=== PATIENT | female | born 1990 | race Caucasian/White ===

== ENCOUNTER 2021-02-04 16:53 | Emergency (ER) | payer MEDICAID, SELFPAY ==
[~2021-02-04] VITALS: Ht 167.6 cm; Wt 59.0 kg
[2021-02-04 16:53] VITALS: BP_SYST 120
--- NOTE | 2021-02-04 17:00 | NUR ---
Patient to ER bed TENT1 to gown for evaluation. Side rails up.
--- NOTE | 2021-02-04 17:10 | NUR ---
PT REPORTS COVID (+) TEST.PT HAS ACUTE RESP DISTRESS NOTED,VSS.
--- NOTE | 2021-02-04 21:00 | NUR ---
Called pt x 3, no answer. Patient left without being seen. No futher treatment provided. ER MD aware
== END 2021-02-04 21:00 | disposition left against medical advice (07) ==
LOC: SED 16:53
DX: U07.1 COVID-19 (principal); Z53.21 Procedure and treatment not carried out due to patient leaving prior to being seen by health care provider

== ENCOUNTER 2022-01-06 16:07 | Emergency (ER) | payer MEDICAID ==
[~2022-01-06] VITALS: Ht 162.6 cm; Wt 65.8 kg
[2022-01-06 16:10] VITALS: BP_SYST 128
--- NOTE | 2022-01-06 16:10 | NUR ---
Patient triaged and placed in waiting room. VSS and patient appears in no acute distress at this time. Accompanied by FRIEND, awaiting available bed, and MD notified of need for MSE.
--- NOTE | 2022-01-06 17:10 | NUR ---
Pt bib bls from urgent care. CC febrile 100.3 body aches 07/29. NVD. Pt is aaox3, fatique cramping and incontinet . Pt has flu like symptoms for past 5 days. Denies SOB. not covid vaccinated, SX Hx appendectomy, history of asthma.
[2022-01-06] MEDS: NACL 0.9% 1,000 ML IV ONE (17:15)
[2022-01-06] MEDS ORDERED: ACETAMINOPHEN 500 MG TABLET PO ONE (17:15)
[2022-01-06] MEDS ORDERED: KETOROLAC TROMETHAMINE 15 MG VIAL IVP ONE (17:15)
[2022-01-06] MEDS ORDERED: ONDANSETRON HCL 4 MG/2 ML VIAL IVP ONE (17:15)
[2022-01-06 17:52] LABS: BASOPHILS # (AUTO) 0.1 K/uL (0.0-0.2); BASOPHILS % (AUTO) 0.4 % (0.0-2.0); EOSINOPHILS % (AUTO) 0.1 % (0.0-4.0); HEMATOCRIT 44.5 % (36-48); HEMOGLOBIN 15.5 g/dL (12.0-16.0); LYMPHOCYTES # (AUTO) 0.4 K/uL (1.0-5.5); LYMPHOCYTES % (AUTO) 3.1 % (20.5-51.5); MEAN CORPUSCULAR HEMOGLOBIN 31 pg (27-31); MEAN CORPUSCULAR HGB CONC 35 % (32-36); MEAN CORPUSCULAR VOLUME 88 fL (79.0-98.0); MONOCYTES # (AUTO) 0.7 K/uL (0.0-1.0); NEUTROPHILS # (AUTO) 11.1 K/uL (1.8-7.7); NEUTROPHILS % (AUTO) 90.4 % (40.0-70.0); PLATELET COUNT (AUTO) 305 K/uL (130-430); RED BLOOD CELL COUNT(AUTO) 5.04 MIL/uL (4.2-6.2); RED CELL DISTRIBUTION WIDTH 12.5 % (9.0-15.0); WHITE BLOOD COUNT (AUTO) 12.3 K/uL (4.8-10.8)
[2022-01-06 17:59] LABS: CREATININE 1.08 mg/dL (0.55-1.30)
[2022-01-06 18:05] LABS: ALBUMIN 4.8 g/dL (3.4-4.8); TOTAL BILIRUBIN 0.3 mg/dL (0.0-1.0)
--- NOTE | 2022-01-06 19:17 | NUR ---
Pt BBA complaining of flu like syptoms starting 5 days ago with nasea and vomiting and diahrrea
--- NOTE | 2022-01-06 19:19 | NUR ---
Pt brought in with fever and having waiting at an urgent care and another ER before coming in. Pt given pants as pt had dirtied hers and desired to throw hers away.
--- NOTE | 2022-01-06 19:20 | NUR ---
Pt boyfriend at bedside having sypmtoms of flu as well and okay to be in room with pt per ER Dr. Barbosa is calm and feeling better
--- NOTE | 2022-01-06 20:30 | NUR ---
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
[2022-01-06 21:37] LABS: BILIRUBIN,URINE 2+ (NEGATIVE); BLOOD, URINE NEGATIVE (NEGATIVE); CLARITY/URINE CLEAR (CLEAR); GLUCOSE,URINE NEGATIVE (NEGATIVE); KETONES,URINE 1+ (NEGATIVE); LEUKOCYTE ESTERASE ,URINE NEGATIVE (NEGATIVE); NITRITE, URINE NEGATIVE (NEGATIVE); PH,URINE 5.5 (5.0-8.0); PROTEIN URINE 1+ (NEGATIVE); UROBILINOGEN,URINE 0.2 (0.2-1.0)
[2022-01-06 21:41] LABS: COLOR,URINE AMBER (YELLOW)
[2022-01-06 21:42] LABS: BACTERIA,URINE FEW /HPF (None Seen); RBC,URINE 0-3 /HPF (0-3); WBC,URINE 0-3 /HPF (0-3)
[2022-01-06 21:43] LABS: MUCUS,URINE 3+ /LPF (None Seen)
[2022-01-06] MEDS ORDERED: ONDA-8 TL (21:56)
--- NOTE | 2022-01-06 22:10 | NUR ---
Patient given written and verbal discharge instructions and verbalizes understanding. ER MD discussed with patient the results and treatment provided. Patient in stable condition. ID arm band removed. IV catheter removed intact and dressing applied, no active bleeding. Rx of ZOFRAN given. Patient educated on pain management and to follow up with PMD. Opportunity for questions provided and answered. Medication side effect fact sheet provided.
[2022-01-06 22:11] VITALS: BP_SYST 95
== END 2022-01-06 22:11 | disposition home or self-care (01) ==
LOC: SED 16:07
DX: J11.1 Influenza due to unidentified influenza virus with other respiratory manifestations (principal); R11.10 Vomiting, unspecified; R19.7 Diarrhea, unspecified; R05.9 Cough, unspecified; R10.31 Right lower quadrant pain; R50.9 Fever, unspecified; J45.909 Unspecified asthma, uncomplicated; Z79.899 Other long term (current) drug therapy; Z20.822 Contact with and (suspected) exposure to COVID-19
CPT/HCPCS: 99284; 74176; 96374; 76830; 96361; 96375; 87426; 80053; 81000; 83690; 85025; 36415; 76376; 81025; 87804 ×2; J1885; J2405; J7030

== ENCOUNTER 2022-09-24 00:23 | Emergency (ER) | payer MEDICAID ==
[~2022-09-24] VITALS: Ht 170.2 cm; Wt 58.5 kg
[~2022-09-24 00:23] MED LIST: ONDA-8 TL
[2022-09-24 00:30] VITALS: BP_SYST 117; PULSE 88; RESP 20; TEMP 98.9; O2SAT 96
--- NOTE | 2022-09-24 00:42 | NUR ---
Patient to ER bed 03 to gown for evaluation. Side rails up. Report given to CALEB MEIER.
--- NOTE | 2022-09-24 01:05 | NUR ---
PT BIB BY SELF C/O OF VAGINAL BLEEDING FOR 14 DAYS. PT STATED HER LAST MENSTRAL CYCLE WAS THE FIRST WEEK OF AUGUST. PT STATES SHE HAS BEEN HAVING BLEEDING AND SATURATING A PAD EVERY HOUR. PT STATES SHE HAS BEEN EXPERIENCING A HEADACHE, NAUSEA, AND DIZZINESS OF TODAY. PT MEDICAL HX OF LABIA PLASTY. PT DENIES ANY TRAUMA TO HER VAGINAL AREA. PT EYES OPEN SPONTANEOUSLY. PT IS ALERT AND ORIENTED TO PERSON, PLACE, TIME, AND SITUATION. PT OBEYS COMMANDS. PT DENIES AUDITORY OR VISUAL ISSUES. PT DENIES SOB OR CHEST PAIN. PT DENIES VOMTITNG. PT DENIES ABOMINAL PAIN. PT DENIES URINARY OR BOWEL ISSUES. PT SKIN IS WARM TO TOUCH. PT DOES HAVE LOWER ABOMINAL CRAMPING. PT IS NOT ACTIVELY BLEEDING AT THIS TIME. PT IS IN ROOM 3 ON THE MONITOR PLAN OF CARE CONTINUES.
--- NOTE | 2022-09-24 01:10 | NUR ---
ER at bedside examining patient.
[2022-09-24 01:38] LABS: BASOPHILS # (AUTO) 0.1 K/uL (0.0-0.2); BASOPHILS % (AUTO) 0.7 % (0.0-2.0); EOSINOPHILS # (AUTO) 0.2 K/uL (0.0-0.4); EOSINOPHILS % (AUTO) 3.2 % (0.0-4.0); HEMATOCRIT 37.8 % (36-48); HEMOGLOBIN 13.1 g/dL (12.0-16.0); LYMPHOCYTES # (AUTO) 2.1 K/uL (1.0-5.5); LYMPHOCYTES % (AUTO) 27.5 % (20.5-51.5); MEAN CORPUSCULAR HEMOGLOBIN 31 pg (27-31); MEAN CORPUSCULAR HGB CONC 35 % (32-36); MEAN CORPUSCULAR VOLUME 90 fL (79.0-98.0); MONOCYTES # (AUTO) 0.7 K/uL (0.0-1.0); MONOCYTES % (AUTO) 8.7 % (1.7-9.3); NEUTROPHILS # (AUTO) 4.7 K/uL (1.8-7.7); NEUTROPHILS % (AUTO) 59.9 % (40.0-70.0); PLATELET COUNT (AUTO) 263 K/uL (130-430); RED BLOOD CELL COUNT(AUTO) 4.21 MIL/uL (4.2-6.2); RED CELL DISTRIBUTION WIDTH 13.4 % (9.0-15.0); WHITE BLOOD COUNT (AUTO) 7.8 K/uL (4.8-10.8)
[2022-09-24 02:07] LABS: ALBUMIN 4.1 g/dL (3.4-4.8); CALCIUM 9.1 mg/dL (8.4-11.0); CREATININE 0.83 mg/dL (0.55-1.30); TOTAL BILIRUBIN 0.4 mg/dL (0.0-1.0)
--- NOTE | 2022-09-24 02:30 | NUR ---
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 PLAN OF CARE CONTINUES.
[2022-09-24 03:55] VITALS: BP_SYST 127; PULSE 67; RESP 20; TEMP 97.7; O2SAT 98
[2022-09-24 03:56] LABS: BILIRUBIN,URINE NEGATIVE (NEGATIVE); BLOOD, URINE 2+ (NEGATIVE); CLARITY/URINE CLEAR (CLEAR); COLOR,URINE YELLOW (YELLOW); GLUCOSE,URINE NEGATIVE (NEGATIVE); KETONES,URINE NEGATIVE (NEGATIVE); LEUKOCYTE ESTERASE ,URINE NEGATIVE (NEGATIVE); NITRITE, URINE NEGATIVE (NEGATIVE); PROTEIN URINE NEGATIVE (NEGATIVE); UROBILINOGEN,URINE 0.2 (0.2-1.0)
--- NOTE | 2022-09-24 03:57 | NUR ---
Patient given written and verbal discharge instructions and verbalizes understanding. ER MD discussed with patient the results and treatment provided. Patient in stable condition. ID arm band removed. Patient educated on pain management and to follow up with PMD. Pain Scale 4 OUT OF 10 . Opportunity for questions provided and answered. Medication side effect fact sheet provided.
[2022-09-24 04:11] LABS: BACTERIA,URINE RARE /HPF (None Seen)
== END 2022-09-24 03:57 | disposition home or self-care (01) ==
LOC: SED 00:23
DX: N93.9 Abnormal uterine and vaginal bleeding, unspecified (principal); J45.909 Unspecified asthma, uncomplicated; Z79.899 Other long term (current) drug therapy
CPT/HCPCS: 36415; 76856-TC; 80053; 81000; 81025; 85025; 86886; 86900; 86901; 99284

== ENCOUNTER 2022-11-29 14:36 | Emergency (ER) | payer MEDICAID ==
[~2022-11-29] VITALS: Ht 170.2 cm; Wt 58.5 kg
[2022-11-29 14:36] VITALS: BP_SYST 116; PULSE 79; RESP 18; TEMP 98.1; O2SAT 99
[2022-11-29] MEDS ORDERED: NACL 0.9% 1,000 ML IV ONE (15:00)
[2022-11-29] MEDS ORDERED: ONDANSETRON HCL 4 MG/2 ML VIAL IVP ONE (15:00)
[2022-11-29] MEDS ORDERED: KETOROLAC TROMETHAMINE 30 MG VIAL IVP ONE (15:00)
[2022-11-29] MEDS ORDERED: LIDOCAINE JELLY 5 ML TUBE MM ONE (15:15)
[2022-11-29] MEDS ORDERED: LIDOCAINE 2% JELLY UROJECT 10 ML MM ONE (15:51)
[2022-11-29 15:59] LABS: ANION GAP 8 (5-15); CALCIUM 9.4 mg/dL (8.4-11.0); CARBON DIOXIDE 28 mmol/L (23-29); CHLORIDE 104 mmol/L (98-107); CREATININE 0.87 mg/dL (0.55-1.30); GFR AFRICAN AMERICAN 98 mL/min (>90); GLUCOSE 95 mg/dL (74-106); POTASSIUM 3.6 mmol/L (3.5-5.1); SODIUM SERUM 140 mmol/L (136-145); UREA NITROGEN, BLOOD 11 mg/dL (8-21)
[2022-11-29 16:01] LABS: GFR NON AFRICAN-AMERICAN 81 mL/min (>90)
[2022-11-29 16:04] LABS: ALANINE AMINOTRANSFERASE 20 U/L (12-78); ALBUMIN 3.9 g/dL (3.4-4.8); ASPARTATE AMINOTRANSFERASE 14 U/L (10-37); TOTAL BILIRUBIN 0.4 mg/dL (0.0-1.0); TOTAL PROTEIN, SERUM 7.1 g/dL (6.4-8.3)
[2022-11-29 16:05] LABS: ALCOHOL, BLOOD < 3 mg/dL (<10)
[2022-11-29 16:10] LABS: BASOPHILS # (AUTO) 0.1 K/uL (0.0-0.2); BASOPHILS % (AUTO) 0.4 % (0.0-2.0); EOSINOPHILS # (AUTO) 0.1 K/uL (0.0-0.4); EOSINOPHILS % (AUTO) 0.8 % (0.0-4.0); HEMATOCRIT 38.3 % (36-48); HEMOGLOBIN 12.8 g/dL (12.0-16.0); LYMPHOCYTES # (AUTO) 2.3 K/uL (1.0-5.5); LYMPHOCYTES % (AUTO) 16.8 % (20.5-51.5); MEAN CORPUSCULAR HEMOGLOBIN 30 pg (27-31); MEAN CORPUSCULAR HGB CONC 34 % (32-36); MEAN CORPUSCULAR VOLUME 90 fL (79.0-98.0); MONOCYTES % (AUTO) 7.4 % (1.7-9.3); NEUTROPHILS % (AUTO) 74.6 % (40.0-70.0); PLATELET COUNT (AUTO) 283 K/uL (130-430); RED BLOOD CELL COUNT(AUTO) 4.27 MIL/uL (4.2-6.2); RED CELL DISTRIBUTION WIDTH 13.2 % (9.0-15.0); WHITE BLOOD COUNT (AUTO) 13.4 K/uL (4.8-10.8)
[2022-11-29] MEDS ORDERED: DOXY1TAB3 PO (18:25)
[2022-11-29] MEDS ORDERED: ACET325T PO (18:25)
[2022-11-29 18:38] VITALS: BP_SYST 116; PULSE 79; RESP 18; TEMP 98.1; O2SAT 99
== END 2022-11-29 18:38 | disposition home or self-care (01) ==
LOC: SED 14:36
DX: S00.83XA Contusion of other part of head, initial encounter (principal); J45.909 Unspecified asthma, uncomplicated; Z79.899 Other long term (current) drug therapy; Y04.0XXA Assault by unarmed brawl or fight, initial encounter; Y93.89 Activity, other specified; Y92.89 Other specified places as the place of occurrence of the external cause; Y99.8 Other external cause status
CPT/HCPCS: 99284; 96374; 96361; 96375; 80053; 84702; 85025; 36415; G0482; J1885; J2405; J7030

== ENCOUNTER 2022-12-05 20:06 | Inpatient (IN) | payer MEDICAID ==
[~2022-12-05] VITALS: Ht 170.2 cm; Wt 62.1 kg
[~2022-12-05 20:06] MED LIST changes: +ACET325T PO; +DOXY1TAB3 PO
[2022-12-05 20:12] VITALS: BP_SYST 124; PULSE 59; RESP 18; TEMP 98.2; O2SAT 100
[2022-12-05 21:30] LABS: BASOPHILS % (AUTO) 0.6 % (0.0-2.0); EOSINOPHILS # (AUTO) 0.2 K/uL (0.0-0.4); EOSINOPHILS % (AUTO) 2.7 % (0.0-4.0); HEMATOCRIT 37.7 % (36-48); HEMOGLOBIN 12.5 g/dL (12.0-16.0); LYMPHOCYTES # (AUTO) 1.8 K/uL (1.0-5.5); LYMPHOCYTES % (AUTO) 21.6 % (20.5-51.5); MEAN CORPUSCULAR HEMOGLOBIN 30 pg (27-31); MEAN CORPUSCULAR HGB CONC 33 % (32-36); MEAN CORPUSCULAR VOLUME 91 fL (79.0-98.0); MONOCYTES # (AUTO) 0.6 K/uL (0.0-1.0); MONOCYTES % (AUTO) 6.8 % (1.7-9.3); NEUTROPHILS # (AUTO) 5.5 K/uL (1.8-7.7); NEUTROPHILS % (AUTO) 68.3 % (40.0-70.0); PLATELET COUNT (AUTO) 287 K/uL (130-430); RED BLOOD CELL COUNT(AUTO) 4.15 MIL/uL (4.2-6.2); WHITE BLOOD COUNT (AUTO) 8.1 K/uL (4.8-10.8)
[2022-12-05 21:44] LABS: CALCIUM 9.3 mg/dL (8.4-11.0); CREATININE 0.76 mg/dL (0.55-1.30); POTASSIUM 4.3 mmol/L (3.5-5.1)
[2022-12-05 21:50] LABS: ALBUMIN 3.8 g/dL (3.4-4.8); TOTAL BILIRUBIN 0.2 mg/dL (0.0-1.0); TOTAL PROTEIN, SERUM 7.1 g/dL (6.4-8.3)
[2022-12-05] MEDS ORDERED: MORPHINE 2 MG/ML INJ. SYRINGE IVP ONE (22:30)
[2022-12-05] MEDS ORDERED: ONDANSETRON HCL 4 MG/2 ML VIAL IVP ONE (22:30)
[2022-12-05 22:54] LABS: BILIRUBIN,URINE NEGATIVE (NEGATIVE); COLOR,URINE YELLOW (YELLOW); GLUCOSE,URINE NEGATIVE (NEGATIVE); KETONES,URINE NEGATIVE (NEGATIVE); LEUKOCYTE ESTERASE ,URINE NEGATIVE (NEGATIVE); NITRITE, URINE NEGATIVE (NEGATIVE); PH,URINE 6.5 (5.0-8.0); PROTEIN URINE NEGATIVE (NEGATIVE); UROBILINOGEN,URINE 0.2 (0.2-1.0)
[2022-12-05 23:32] LABS: BLOOD, URINE TRACE (NEGATIVE); CLARITY/URINE HAZY (CLEAR)
[2022-12-05 23:34] LABS: BACTERIA,URINE None Seen /HPF (None Seen); WBC,URINE 0-3 /HPF (0-3)
[2022-12-06] MEDS ORDERED: MORPHINE 2 MG/ML INJ. SYRINGE IVP ONE (01:45)
[2022-12-06] MEDS: MORPHINE 4 MG INJ. 4 MG/ML VIAL IVP PRN ×4 (04:54→13:39)
[2022-12-06 05:30] VITALS: BP_SYST 113; PULSE 48; RESP 18; TEMP 97.4; O2SAT 100
[2022-12-06 05:40] VITALS: BP_SYST 113; PULSE 48; RESP 18; TEMP 97.4
[2022-12-06 07:00] VITALS: BP_SYST 120; PULSE 45; RESP 18; TEMP 97.5; O2SAT 99
[2022-12-06] MEDS: LR 1,000 ML IV SCH ×3 (07:17→17:05)
[2022-12-06 20:00] VITALS: BP_SYST 131; PULSE 54; RESP 18; TEMP 97.2; O2SAT 100
[2022-12-06] MEDS ORDERED: NALOXONE HCL 0.4 MG/ML AMP (NARCAN) IVP PRN (20:15)
[2022-12-06] MEDS ORDERED: MORPHINE 2 MG/ML INJ. SYRINGE IM PRN (20:15)
[2022-12-06] MEDS ORDERED: OXYCODONE/ACETAMINOPHEN *10*mg/325 mg TABLET PO PRN (21:15)
[2022-12-06] MEDS ORDERED: ONDANSETRON 4 MG ODT TAB PO PRN (21:15)
[2022-12-07] VITALS: BP_SYST 110; PULSE 60; RESP 16; TEMP 98.4; O2SAT 99
[2022-12-07] MEDS: ACETAMINOPHEN 325 MG TABLET PO PRN ×2 (00:35→15:29)
[2022-12-07 03:14] VITALS: O2SAT 100
[2022-12-07 08:00] VITALS: BP_SYST 104; PULSE 60; RESP 18; TEMP 99.4; O2SAT 99
[2022-12-07 17:49] VITALS: BP_SYST 121; PULSE 66; RESP 19; TEMP 98.7
== END 2022-12-07 18:06 | disposition home or self-care (01) | DRG 251 ==
LOC: SED 20:06 → SMU 12-06 03:34
PROVIDERS: ADMIT Obstetrics & Gynecology; ATTEND Obstetrics & Gynecology
DX: R10.2 Pelvic and perineal pain (principal); F12.90 Cannabis use, unspecified, uncomplicated; G89.18 Other acute postprocedural pain; J45.909 Unspecified asthma, uncomplicated; R11.2 Nausea with vomiting, unspecified
CPT/HCPCS: 36415; 76830-TC; 80053; 81000; 81001; 85025; 96374; 96375; 99285; J2270; J2405; Q0162

== ENCOUNTER 2022-12-12 20:26 | Emergency (ER) | payer MEDICAID ==
[~2022-12-12] VITALS: Ht 170.2 cm; Wt 61.2 kg
[2022-12-12 20:54] VITALS: BP_SYST 121; PULSE 75; RESP 18; TEMP 97; O2SAT 98
[2022-12-12] MEDS ORDERED: CEPH-548 PO (22:44)
[2022-12-12] MEDS ORDERED: cefTRIAXone 1 GM in LIDOCAINE 1%, 20 ML MDV 2.1 ML IM ONE (22:45)
[2022-12-12 23:00] VITALS: BP_SYST 121; PULSE 75; RESP 18; TEMP 97; O2SAT 98
== END 2022-12-12 23:00 | disposition home or self-care (01) ==
LOC: SED 20:26
DX: L03.316 Cellulitis of umbilicus (principal); R10.33 Periumbilical pain; J45.909 Unspecified asthma, uncomplicated; Z79.899 Other long term (current) drug therapy
CPT/HCPCS: 99283; 96372; J0696; J2001